=== PATIENT | female | born 1945 | race Caucasian/White ===

== ENCOUNTER → 2019-12-27 16:49 | Outpatient (BNVA) | payer MEDICARE, BC, SELFPAY | PROVIDERS: Family Provider Family Medicine; PCP Family Medicine; Visit Provider Dermatology | DX: D48.9 Neoplasm of uncertain behavior, unspecified (principal) | CPT/HCPCS: 88304 ==

== ENCOUNTER 2021-04-05 14:19 | Outpatient (CLI) | payer MEDICARE, BC, SELFPAY ==
--- NOTE | 2021-04-05 15:00 | USCV_ITS ---
Efrain Rossana Age: 75 Gender: F : 1945 Exam Date: 04/05/2021 14:38 Ordering Phys: Kaylin Guy Technologist: Exam Location: [facility] [place] Indication: EF BP: 134 / 75 HR: 64 Rhythm: Sinus Technical Quality: Adequate MEASUREMENTS (Male / Female) Normal Values 2D ECHO LV Diastolic Diameter PLAX 4.1 cm 4.2 - 5.9 / 3.9 - 5.3 cm LV Systolic Diameter PLAX 2.9 cm IVS Diastolic Thickness 1.0 cm 0.6 - 1.0 / 0.6 - 0.9 cm IVS Systolic Thickness 1.7 cm LVPW Diastolic Thickness 1.2 cm 0.6 - 1.0 / 0.6 - 0.9 cm LVPW Systolic Thickness 1.7 cm LVOT Diameter 2.0 cm LV Ejection Fraction 2D Teich 61.3 % LV Ejection Fraction MOD 2C 71.2 % LV Ejection Fraction 2C AL 70.7 % LA Diameter 4.3 cm LA Width 5.1 cm LA Height 6.1 cm RA Width 3.8 cm RA Height 5.8 cm Aorta at Sinotubular Diameter 2.7 cm M-MODE Aortic Annulus Diameter 2.6 cm LA Ao Ratio MM 1.9 MV E Point Septal Separation 1.0 cm DOPPLER AV Peak Velocity 136.0 cm/s LVOT Peak Velocity 84.0 cm/s AV Area Cont Eq vti 2.2 cm squared AV Area Cont Eq pk 2.0 cm squared MV Area PHT 5.0 cm squared Mitral E to A Ratio 1.1 MV E' Velocity 42.5 cm/s Mitral E to MV E' Ratio 7.8 Mitral E to LV E' Lateral Ratio 9.2 Mitral E to LV E' Septal Ratio 6.8 TR Peak Velocity 173.5 cm/s TR Peak Gradient 12.0 mmHg TV Peak E Velocity 101.0 cm/s Right Atrial Pressure 3.0 mmHg Pulmonary Artery Systolic Pressu 15.0 mmHg PV Peak Velocity 130.0 cm/s FINDINGS Left Ventricle Normal left ventricular size. LV systolic function is normal with EF of 55-60%. No regional wall motion abnormalities. Right Ventricle The right ventricle is normal in size and function. Right Atrium The right atrium is normal in size. Left Atrium The left atrium is normal in size. Mitral Valve Structurally normal mitral valve without significant stenosis or prolapse. There is no mitral regurgitation. Aortic Valve Structurally normal aortic valve without significant sclerosis or stenosis. There is no aortic regurgitation. Tricuspid Valve Structurally normal tricuspid valve without significant stenosis or regurgitation. Insufficient TR jet to calculate RVSP Pulmonic Valve Structurally normal pulmonic valve without significant stenosis. There is no pulmonic regurgitation. Pericardium Normal pericardium without effusion. Aorta Normal ascending aorta dimension. CONCLUSIONS Technically limited quality echocardiogram because of poor ultrasonic windows. LV systolic function normal with EF 55 to 60%. No significant valvular heart disease is noted. Compared to prior echocardiogram from 12/21/2018, no significant changes are noted Pérez Burgos MD (Electronically Signed) Final Date: 18 April 2021 10:34 S
== END 2021-04-05 14:20 | disposition home or self-care (01) ==
LOC: RAD 14:21
PROVIDERS: Family Provider Family Medicine; PCP Family Medicine; Visit Provider Nurse Practitioner Family
DX: I10 Essential (primary) hypertension (principal)
CPT/HCPCS: 93306

== ENCOUNTER → 2021-09-06 10:28 | Outpatient (BNVA) | payer MEDICARE, BC, SELFPAY | PROVIDERS: Family Provider Family Medicine; PCP Family Medicine; Visit Provider Nurse Practitioner Family | DX: I10 Essential (primary) hypertension (principal); Z87.891 Personal history of nicotine dependence | CPT/HCPCS: 99213 ==

== ENCOUNTER → 2022-02-03 14:46 | Outpatient (BNVA) | payer MEDICARE, BC, SELFPAY | PROVIDERS: Family Provider Family Medicine; PCP Family Medicine; Visit Provider Family Medicine | DX: N39.0 Urinary tract infection, site not specified (principal); R30.9 Painful micturition, unspecified | CPT/HCPCS: 81000; 87077; 87086; 87184 ==

== ENCOUNTER → 2022-04-08 09:54 | Outpatient (BNVA) | payer MEDICARE, BC, SELFPAY | PROVIDERS: Family Provider Family Medicine; PCP Family Medicine; Visit Provider Internal Medicine Cardiovascular Disease | DX: I49.8 Other specified cardiac arrhythmias (principal); I10 Essential (primary) hypertension; R55 Syncope and collapse; Z87.891 Personal history of nicotine dependence | CPT/HCPCS: 93005; 99214 ==

== ENCOUNTER → 2022-05-29 14:06 | Outpatient (BNVA) | payer MEDICARE, BC, SELFPAY | PROVIDERS: Family Provider Family Medicine; PCP Family Medicine; Visit Provider Family Medicine | DX: Z00.00 Encounter for general adult medical examination without abnormal findings (principal); I10 Essential (primary) hypertension; M19.90 Unspecified osteoarthritis, unspecified site | CPT/HCPCS: 80053; 80061; 84550 ==

== ENCOUNTER → 2022-10-14 15:18 | Outpatient (BNVA) | payer MEDICARE, BC, SELFPAY | PROVIDERS: Family Provider Family Medicine; PCP Family Medicine; Visit Provider Internal Medicine Cardiovascular Disease | DX: I49.8 Other specified cardiac arrhythmias (principal); I10 Essential (primary) hypertension; R55 Syncope and collapse; Z87.898 Personal history of other specified conditions; Z87.891 Personal history of nicotine dependence | CPT/HCPCS: 99214 ==

== ENCOUNTER → 2022-10-16 13:50 | Outpatient (BNVA) | payer MEDICARE, BC, SELFPAY | PROVIDERS: Family Provider Family Medicine; PCP Family Medicine; Visit Provider Nurse Practitioner Family | DX: R39.9 Unspecified symptoms and signs involving the genitourinary system (principal); R10.9 Unspecified abdominal pain | CPT/HCPCS: 74018; 80053; 81000; 85025 ==

== ENCOUNTER → 2022-12-05 14:11 | Outpatient (BNVA) | payer MEDICARE, BC, SELFPAY | PROVIDERS: Family Provider Family Medicine; PCP Family Medicine; Visit Provider Nurse Practitioner Family | DX: R30.0 Dysuria (principal) | CPT/HCPCS: 81000 ==

== ENCOUNTER → 2022-12-09 12:36 | Outpatient (BNVA) | payer MEDICARE, BC, SELFPAY | PROVIDERS: Family Provider Family Medicine; PCP Family Medicine; Visit Provider Family Medicine | DX: N30.90 Cystitis, unspecified without hematuria (principal); R10.9 Unspecified abdominal pain; R82.90 Unspecified abnormal findings in urine | CPT/HCPCS: 81000; 87086 ==

== ENCOUNTER → 2023-04-16 13:09 | Outpatient (BNVA) | payer MEDICARE, BC, SELFPAY | PROVIDERS: Family Provider Family Medicine; PCP Family Medicine; Visit Provider Family Medicine | DX: N39.0 Urinary tract infection, site not specified (principal) | CPT/HCPCS: 81000; 87086 ==

== ENCOUNTER → 2023-06-23 11:57 | Outpatient (BNVA) | payer MEDICARE, BC, SELFPAY | PROVIDERS: Family Provider Family Medicine; PCP Family Medicine; Visit Provider Family Medicine | DX: N39.0 Urinary tract infection, site not specified (principal); Z13.6 Encounter for screening for cardiovascular disorders; R55 Syncope and collapse; I10 Essential (primary) hypertension | CPT/HCPCS: 80053; 80061; 81000; 85025; 87077; 87086; 87184 ==

== ENCOUNTER → 2023-06-29 12:15 | Outpatient (BNVA) | payer MEDICARE, BC, SELFPAY | PROVIDERS: Family Provider Family Medicine; PCP Family Medicine; Visit Provider Family Medicine | DX: N39.0 Urinary tract infection, site not specified (principal) | CPT/HCPCS: 81000; 87086 ==

== ENCOUNTER 2023-11-02 12:24 | Emergency (ER) | payer MEDICARE, BC, SELFPAY ==
--- NOTE | 2023-11-02 12:27 | XR_ITS ---
WS: [id number] XR chest 1V portable [id number] REASON FOR EXAM: fever FINDINGS: The chest is unchanged compared to 09/13/2015 Mild tortuosity of the thoracic aorta. Normal heart size. Calcified granulomas disease in both hemithoraces. No acute pulmonary parenchymal or pleural abnormality. Eventration of the right hemidiaphragm. Moderate degenerative spondylosis in the mid and lower thoracic spine. XR/XR chest 1V portable [id number] IMPRESSION: Stable chest without acute abnormality.
[2023-11-02 12:28] VITALS: BP 165/63; PULSE 90; RESP 18; TEMP 37.5; BMI 30.9
--- NOTE | 2023-11-02 12:32 | ECG_ITS ---
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 Measurements Intervals [place] Rate: 59 P: 0 OK: 0 QRS: 41 QRSD: 79 T: 55 QT: 372 QTc: 371 Interpretive Statements SINUS BRADYCARDIA WITH PACs No previous ECG available for comparison Electronically Signed On 11-03-2023 7:43:34 CDT by Pérez Burgos M.D. [id number]
--- NOTE | 2023-11-02 12:41 | ED_ITS ---
HPI - Arrhythmia/Palpitations 2 General: Chief Complaint: Arrhythmia/Palpitations Stated Complaint: griffin/fever Time Seen by Provider: 11/02/23 12:28 Source: patient and EMS Mode of arrival: EMS Limitations: no limitations History of Present Illness: 78-year-old female states that she has n ot felt well the last 3 weeks since she has had fever she has been having a diarrhea and just generalized fatigue she states she seen her PCP did not and was bradycardic and sent here by ambulance she denies any chest pain denies any shortness of breath. She denies any vomiting. Associated symptoms: Deny nausea or vomiting Related Data Home Medications Medication Instructions Recorded Confirmed folic acid 400 mcg tablet 0.4 mg PO DAILY 08/15/19 11/02/23 multivitamin 1 tab PO DAILY 08/15/19 11/02/23 cholecalciferol (vitamin D3) 25 25 mcg PO DAILY 09/06/21 11/02/23 mcg (1,000 unit) capsule magnesium hydroxide 400 mg (170 mg 400 mg PO DAILY 04/08/22 11/02/23 magnesium) chewable tablet febuxostat 80 mg tablet 80 mg PO DAILY uric acid 11/02/23 11/02/23 gabapentin 300 mg capsule 600 mg PO TID PRN chronic pain 11/02/23 11/02/23 losartan 50 mg tablet 50 mg PO DAILY 11/02/23 11/02/23 zinc sulfate 50 mg zinc (220 mg) 50 mg PO DAILY 11/02/23 11/02/23 tablet Previous Rx's Medication Instructions Recorded hydrocodone 7.5 mg-acetaminophen 1 tab PO TID PRN pain 1 month #90 10/22/23 325 mg tablet tabs Allergies Allergy/AdvReac Type Severity Reaction Status Date / Time allopurinol Allergy Severe Unknown Verified 11/02/23 10:23 aspirin Allergy Severe Anaphylaxis Verified 11/02/23 10:23 atorvastatin [From Lipitor] Allergy Severe Unknown Verified 11/02/23 10:23 Penicillins Allergy Severe Unknown Verified 11/02/23 10:23 ciprofloxacin [From Cipro] Allergy Intermediate Unknown Verified 11/02/23 10:23 doxycycline Allergy Mild Pruritis Verified 11/02/23 10:23 nitrofurantoin Allergy Mild Pruritis Verified 11/02/23 10:23 [From Macrobid] rosuvastatin [From Crestor] Allergy Mild Unknown Verified 11/02/23 10:23 colestipol Allergy Unknown Unknown Verified 11/02/23 10:23 Review of Systems 2 Const: Reports: fatigue and malaise; Denies: fever(s), chills, body aches or change in appetite ENMT: Denies: throat pain or dental pain Card: Denies: chest pain Resp: Denies: dyspnea GI: Reports: diarrhea; Denies: abdominal pain, nausea or vomiting Musc: Denies: neck pain or back pain Skin/Breast: Denies: rash Neuro: Denies: headache(s) PFSH ED 2 PFSH: Medical History Enrolled in chronic care management Please do not remove from active History of nonmelanoma skin cancer Neuropathy Osteoporosis Fibromyalgia DDD (degenerative disc disease) Essential hypertension Surgical History History of bladder surgery (~2012) reports bladder tied up and a new vaginal opening likely A&P repair. S/P cataract extraction S/P cholecystectomy S/P breast biopsy benign Right breast S/P appendectomy S/P hysterectomy (~1973) TVH, bladder repair; ovaries spared. S/P knee surgery BILATERAL KNEE REPLACEMENT S/P shoulder surgery Right rotator cuff repair Family History Sister , Breast CA Cancer Father , 80's Heart disease Mother , 80's Diabetes Stroke Social History Smoking and tobacco/nicotine status: former use of tobacco/nicotine Second hand smoke exposure: No Alcohol intake: unknown Substance/Drug Use: unknown Adopted: No Caregiver/support person: No Lives independently: Yes Household members: spouse Housing: House Marital status: service: No Current occupational status: retired Do you think of yourself as: Straight/Heterosexual Current gender identity: Female Physical Exam 2 Const: COMMON NORMALS: patient oriented x3 HENMT: COMMON NORMALS: normocephalic and atraumatic HEAD & SCALP: n ormocephalic and atraumatic Eye: COMMON NORMALS: Equal, round and reactive pupils present and EOMs intact bilaterally PUPIL: Yes Equal, round and reactive pupils present Neck/C-Spine: COMMON NORMALS: full ROM and supple Chest: COMMONS NORMALS: normal inspection of the chest Resp: COMMON NORMALS: normal respiratory effort, No retractions, No use of accessory muscles and clear to auscultation bilaterally AUSCULTATION: clear to auscultation bilaterally Cardio: COMMON NORMALS: No murmurs present (Cardio) RATE: bradycardic GI: COMMON NORMALS: Normal to inspection, nondistended, normoactive bowel sounds present, Soft to palpation, non-tender and no masses PALPATION: Yes Soft to palpation Extremity: COMMON NORMALS: normal to inspection and full ROM Neuro: COMMON NORMALS: patient oriented x3, moves all extremities and no focal motor deficits Psych: COMMON NORMALS: mental status grossly normal, Normal thought process present and cooperative THOUGHT PROCESS: Normal thought process present Skin: COMMON NORMALS: no rashes or lesions noted and no wounds GENERAL SKIN EXAM: no rashes or lesions noted Course 2 Vital Signs: Vital signs: Vital Signs Temperature 99.5 F 11/02/23 12:28 Pulse Rate 75 11/02/23 15:00 Respiratory Rate 14 11/02/23 15:00 Blood Pressure 145/69 11/02/23 15:00 Pulse Oximetry 94 11/02/23 15:00 Oxygen Delivery Me thod Room Air 11/02/23 15:00 MDM - Arrhythmia/Palpitations Medical Decision Making Patient presents here with some generalized weakness along with diarrhea patient likely had had COVID 2 or 3 weeks ago. She has been well-appearing here vitals are normal she is in bigeminy here she has had no severe bradycardia or heart blocks. Medical Records I reviewed the patient's medical records. Lab Data I reviewed the patient's lab results. 11/02/23 12:50 11/02/23 12:50 Radiology Impressions Chest X-Ray 11/02/23 12:27 IMPRESSION: Stable chest without acute abnormality. Laboratory Results WBC 5.34 10^3/uL (3.29-11.43) 11/02/23 12:50 RBC 4.32 10^6/uL (3.85-5.65) 11/02/23 12:50 Hgb 13.30 g/dL (11.27-16.99) 11/02/23 12:50 Hct 41.8 % (36-47) 11/02/23 12:50 MCV 96.8 fl (85-98) 11/02/23 12:50 MCH 30.8 pg (27-33) 11/02/23 12:50 MCHC 31.8 g/dL (30-55) 11/02/23 12:50 RDW 14.0 % (12.1-15.1) 11/02/23 12:50 Plt Count 243 10^3/cmm (157-399) 11/02/23 12:50 MPV 9.5 fL (7.4-10.4) 11/02/23 12:50 Neut % (Auto) 49.2 % 11/02/23 12:50 Lymph % (Auto) 44.0 % 11/02/23 12:50 [place] % (Auto) 5.6 % 11/02/23 12:50 Eos % (Auto) 0.4 % 11/02/23 12:50 Baso % (Auto) 0.6 % 11/02/23 12:50 Neut # (Auto) 2.63 10^3/uL (1.8-7.7) 11/02/23 12:50 Lymph # (Auto) 2.4 10^3/uL (0.8-4.8) 11/02/23 12:50 [place] # (Auto) 0.3 10^3/uL (0.2-0.9) 11/02/23 12:50 Eos # (Auto) 0.0 10^3/uL (0.0-0.8) 11/02/23 12:50 Baso # (Auto) 0.0 10^3/uL (0.0-0.1) 11/02/23 12:50 Nucleated RBC % (auto) 0 % 11/02/23 12:50 Nucleated RBCs # 0.0 /100WBC 11/02/23 12:50 PT 12.60 SECONDS (12.1-14.9) 11/02/23 12:50 INR 0.91 (0.8-1.2) 11/02/23 12:50 Sodium 138 mmol/L (136-145) 11/02/23 12:50 Potassium 5.0 mmol/L (3.5-5.1) 11/02/23 12:50 Chloride 99 mmol/L (98-107) 11/02/23 12:50 Carbon Dioxide 28 mmol/L (22-29) 11/02/23 12:50 Anion Gap 16.0 (5-19) 11/02/23 12:50 BUN 12 mg/dL (8-23) 11/02/23 12:50 Creatinine 0.9 mg/dL (0.5-0.9) 11/02/23 12:50 GFR Calculation Not Reportable 11/02/23 12:50 Glucose 100 mg/dL (65-115) 11/02/23 12:50 Calculated Osmolality 286 mOsm/kg (285-295) 11/02/23 12:50 Calcium 10.1 mg/dL (8.5-10.5) 11/02/23 12:50 Total Bilirubin 0.6 mg/dL (0.15-1.2) 11/02/23 12:50 AST 25 U/L (0-32) 11/02/23 12:50 ALT 17 U/L (0-33) 11/02/23 12:50 Alkaline Phosphatase 61 U/L (35-105) 11/02/23 12:50 Troponin T Baseline 11 ng/L (0-10) H 11/02/23 12:50 Troponin T 120 Minute 10.92 ng/L (0-10) H 11/02/23 14:34 Delta Troponin T -0.08 ABS# (0-10) L 11/02/23 14:34 Total Protein 7.2 g/dL (6.6-8.7) 11/02/23 12:50 Albumin 4.1 g/dL (3.5-5.2) 11/02/23 12:50 Globulin 3.1 g/dL (1.3-4.6) 11/02/23 12:50 Lipase 60 U/L (13-60) 11/02/23 12:50 TSH 0.95 uIU/mL (0.27-4.20) 11/02/23 12:50 SARS-CoV-2 Ag (Rapid) Negative (Negative) 11/02/23 13:08 All radiology interpretation(s) finalized by discharge EKG Data EKG 1: I personally reviewed and interpreted this EKG as follows: EKG interpretation date: 11/02/23 EKG interpretation time: 12:32 Interpretation: sinus griffin hr 59 bigeminy qrs 79 qtc 372 Other EKG comments: Chest X-Ray 11/02/23 12:27 IMPRESSION: Stable chest without acute abnormality. EKG 2: I personally reviewed and interpreted this EKG as follows: EKG interpretation date: 11/02/23 EKG interpretation time: 13:36 Interpretation: nsry hr [address] elevation qrs 78 qtc 376 Other EKG comments: Chest X-Ray 11/02/23 12:27 IMPRESSION: Stable chest without acute abnormality. Discharge Plan Discharge Patient Disposition: Home Clinical Impression: Diarrhea, Bigeminy Condition: Stable Prescriptions: No Action multivitamin Tablet 1 tab PO DAILY folic acid 400 mcg tablet 0.4 mg PO DAILY cholecalciferol (vitamin D3) 25 mcg (1,000 unit) capsule 25 mcg PO DAILY magnesium hydroxide 400 mg (170 mg magnesium) tablet,chewable 400 mg PO DAILY hydrocodone-acetaminophen 7.5-325 mg tablet 1 tab PO TID PRN (Reason: pain) 30 Days Qty: 90 0RF zinc sulfate 50 mg zinc (220 mg) Tablet 50 mg PO DAILY losartan 50 mg tablet 50 mg PO DAILY gabapentin 300 mg capsule 600 mg PO TID PRN (Reason: chronic pain) febuxostat 80 mg tablet 80 mg PO DAILY Discharge Orders: Discharge ED (Routine); Ordered 11/02/23 Ordered By: Yelena Leon Referrals: Trace Deleon DO [Primary Care Provider] - 4-7 days Discharge Diet: Advance as tolerated Discharge Activity: Resume usual activity Patient Instructions: Acute Diarrhea (ED) Coding Level of Care Code ED 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
[2023-11-02 13:00] LABS: Basophils % 0.6 %; Eosinophils % 0.4 %; Hematocrit 41.8 % (36-47); Lymphocytes # 2.4 10^3/uL (0.8-4.8); Mean Corpuscular HGB Conc 31.8 g/dL (30-55); Mean Corpuscular Hemoglobin 30.8 pg (27-33); Mean Corpuscular Volume 96.8 fl (85-98); Mean Platelet Volume 9.5 fL (7.4-10.4); Monocytes # 0.3 10^3/uL (0.2-0.9); Monocytes % 5.6 %; Neutrophils # 2.63 10^3/uL (1.8-7.7); Neutrophils % 49.2 %; Nucleated Red Blood Cells % 0 %; Platelet Count 243 10^3/cmm (157-399); Red Blood Count 4.32 10^6/uL (3.85-5.65); White Blood Count 5.34 10^3/uL (3.29-11.43)
[2023-11-02 13:11] VITALS: BP 155/91; PULSE 63; RESP 18; O2SAT 98
[2023-11-02 13:21] LABS: INR 0.91 (0.8-1.2)
[2023-11-02 13:27] LABS: Troponin(5th) Baseline 11 ng/L (0-10)
[2023-11-02 13:34] LABS: Alanine Aminotransferase 17 U/L (0-33); Albumin Level 4.1 g/dL (3.5-5.2); Alkaline Phosphatase 61 U/L (35-105); Aspartate Amino Transferase 25 U/L (0-32); Blood Urea Nitrogen 12 mg/dL (8-23); Calcium 10.1 mg/dL (8.5-10.5); Carbon Dioxide 28 mmol/L (22-29); Chloride 99 mmol/L (98-107); Globulin 3.1 g/dL (1.3-4.6); Glucose 100 mg/dL (65-115); Lipase 60 U/L (13-60); Osmolality Calculated 286 mOsm/kg (285-295); Sodium 138 mmol/L (136-145); Thyroid Stimulating Hormone 0.95 uIU/mL (0.27-4.20); Total Bilirubin 0.6 mg/dL (0.15-1.2); Total Protein 7.2 g/dL (6.6-8.7)
[2023-11-02 13:36] LABS: SARS Covid-2 Antigen Negative (Negative)
--- NOTE | 2023-11-02 13:36 | ECG_ITS ---
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 Measurements Intervals [place] Rate: 62 P: 44 VT: 175 QRS: 40 QRSD: 78 T: 52 QT: 372 QTc: 378 Interpretive Statements SINUS RHYTHM WITH FREQUENT SUPRAVENTRICULAR PREMATURE COMPLEXES IN A BIGEMINAL PATTERN Compared to ECG 11/02/2023 12:32:29 Sinus bradycardia no longer present Electronically Signed On 11-03-2023 7:50:35 CDT by Pérez Burogs M.D. [id number]
[2023-11-02 15:00] VITALS: BP 145/69; PULSE 75; RESP 14; O2SAT 94
[2023-11-02 15:04] LABS: Troponin 5 2HR 10.92 ng/L (0-10)
[2023-11-02 15:05] LABS: Troponin 5 2HR Delta -0.08 ABS# (0-10)
[2023-11-02 15:32] VITALS: BP 145/69; PULSE 77; RESP 18; O2SAT 98
== END 2023-11-02 15:34 | disposition home or self-care (01) ==
PROVIDERS: Emergency Provider Emergency Medicine; PCP Family Medicine
DX: R00.8 Other abnormalities of heart beat (principal); R19.7 Diarrhea, unspecified; R00.1 Bradycardia, unspecified; Z87.891 Personal history of nicotine dependence; I10 Essential (primary) hypertension
CPT/HCPCS: 36415; 71045; 80053; 83690; 84443; 84484; 85025; 85610; 87426; 93005; 99285

== ENCOUNTER → 2023-12-24 11:50 | Outpatient (BNVA) | payer MEDICARE, BC, SELFPAY | PROVIDERS: PCP Family Medicine; Visit Provider Family Medicine | DX: N39.0 Urinary tract infection, site not specified (principal); R39.15 Urgency of urination | CPT/HCPCS: 81000; 87077; 87086; 87184 ==

== ENCOUNTER → 2024-03-14 10:48 | Outpatient (BNVA) | payer MEDICARE, BC, SELFPAY | PROVIDERS: PCP Family Medicine; Visit Provider Family Medicine | DX: I10 Essential (primary) hypertension (principal); R00.1 Bradycardia, unspecified; R09.02 Hypoxemia; R53.1 Weakness; E03.9 Hypothyroidism, unspecified | CPT/HCPCS: 80053; 82607; 84443; 85025 ==

== ENCOUNTER → 2024-12-05 13:00 | Outpatient (BNVA) | payer MEDICARE, BC, SELFPAY | PROVIDERS: PCP Family Medicine; Visit Provider Family Medicine | DX: N39.0 Urinary tract infection, site not specified (principal); R39.15 Urgency of urination | CPT/HCPCS: 81000; 87086 ==

== ENCOUNTER → 2024-12-19 11:26 | Outpatient (BNVA) | payer MEDICARE, BC, SELFPAY | PROVIDERS: PCP Family Medicine; Visit Provider Family Medicine | DX: N39.0 Urinary tract infection, site not specified (principal); R39.15 Urgency of urination | CPT/HCPCS: 81000; 87086 ==

== ENCOUNTER → 2024-12-27 10:55 | Outpatient (BNVA) | payer MEDICARE, BC, SELFPAY | PROVIDERS: PCP Family Medicine; Visit Provider Family Medicine | DX: N39.0 Urinary tract infection, site not specified (principal) | CPT/HCPCS: 81000 ==